=== PATIENT | female | born 1995 | race Caucasian/White ===

== ENCOUNTER 2021-10-21 18:55 | Emergency (ER) | payer OTHER, SELFPAY ==
[2021-10-21 19:09] VITALS: BP 135/74; PULSE 111; RESP 20; TEMP 36.5; O2SAT 99
[2021-10-21 19:31] LABS: COVID19 -Nasal RAPID POSITIVE (Negative)
--- NOTE | 2021-10-21 20:43 | PC.NURSE ---
Reports symptoms began 10/16 and that many family members where sick at [place]. Reports 5/10 pain in her neck and that I can't lift my neck up. Swollen lymph nodes noted upon palpation. Reports some dizziness when she gets up. Using a [place] every 4 hours for sinus pain with some relief. Water given. COVID vaccinated x 3.
--- NOTE | 2021-10-21 20:48 | ED_ITS ---
HPI - URI/Sore Throat General Chief Complaint: Upper Respiratory Symptoms Stated Complaint: possible sinus infection Time Seen by Provider: 10/21/21 20:40 Source: patient Mode of arrival: Ambulatory History of Present Illness HPI Narrative: Patient is a 25-year-old female vaccinated with COVID presents today with pressure in her sinuses sore throat general body aches and chills. Symptoms started 10/16/21, and have progressively gotten worse. Her COVID test is positive. Review of Systems Review of Systems Narrative: GENERAL: See HPI HEENT: See HPI + sinus pain, green nasal discharge RESPIRATORY: Denies dyspnea, cough, wheezing, hemoptysis, sputum. CARDIOVASCULAR: Denies chest pain, palpitations, orthopnea, edema GASTROINTESTINAL: Denies nausea, vomiting, abdominal pain, diarrhea, constipation, melena. : Denies dysuria, frequency, incontinence, hematuria, urinary retention, flank pain. MUSCULOSKELETAL: Denies weakness, joint pain, or bony pain SKIN: No rash, no erythema, no pruritus NEUROLOGIC: Denies weakness, dizziness, headache, numbness, change in speech, confusion PSYCHIATRIC: No concerning psychosocial issues. 12 point review of systems is negative except for those stated above and HPI Exam Initial Vital Signs Initial Vital Signs: Vital Signs Temperature 97.7 F 10/21/21 19:09 Pulse Rate 111 H 10/21/21 19:09 Respiratory Rate 20 10/21/21 19:09 Blood Pressure 135/74 10/21/21 19:09 Pulse Oximetry 99 10/21/21 19:09 GENERAL: Alert 25-year-old female appears to not fell well HEENT: Head atraumatic,EOMI, pupils reactive, face symmetric, moist mucous membr anes CARDIOVASCULAR: Regular rate and rhythm without murmurs, rubs or gallops. RESPIRATORY: Breath sounds equal bilaterally, no wheezes rales or rhonchi. EXTREMITIES: Normal range of motion, no clubbing or edema. Neurovascularly intact NEUROLOGICAL: Alert and oriented x4. SKIN: Warm, dry, no laceration, no petechiae, no rashes or lesions. Course Orders Ordered: ED Orders 10/21/21 19:15 COVID19 -Nasal swab/Pre-Proc Stat Vital Signs Vital signs: Vital Signs - 8 hr 10/21/21 19:09 10/21/21 21:11 Temperature 97.7 F Pulse Rate 111 H 101 H Respiratory Rate 20 Blood Pressure 135/74 137/87 Pulse Oximetry 99 98 MDM - URI/Sore Throat Lab Data Labs: Lab Results 10/21/21 Range/Units 19:15 SARS-CoV-2 (PCR) Positive H (Negative) Point of Care Testing Rapid Strep A Negative Discharge Plan Departure Patient Disposition: Home Clinical Impression: COVID-19 Instructions: DI for COVID-19 (Suspected or Confirmed ) Activity Restrictions/Additional Instructions: * if you have not yet been vaccinated is still recommended and encouraged that you do so once your infection has passed *Follow up with your primary provider in 2-3 days or call [phone] AT HOME: -Monitor oxygen with pulse oximeter. If less than 90% for more than 1 hour please return to emergency department -I recommend lying on stomach for side rather than back, it has been proven to increase oxygen levels -Wash hands frequently. -Stay isolated at home please follow the isolation instructions below. -Increase fluid intake. -you may take Tylenol as directed if needed for pain or fever EMERGENCY warning signs for COVID-19: - Difficulty breathing or shortness of breath, oxygen less than 90% - Persistent pain or pressure in the chest - New confusion or inability to arouse - Bluish lips or face CDC Guidelines for home isolation: - Stay away from others - Limit contact with pets and animals: If you must care for a pet, wash your hands before and after interacting with them - Wear a mask while in public all places - Cover your mouth and nose with a tissue when you cough or sneeze. Dispose of tissues in a lined trash can and wash your hands immediately with soap and water for at least 20 seconds. If soap and water are not available, clean hands with alcohol-based hand gang hemstitching machine operator that contains at least 60% alcohol. - Clean your hands often with soap and water for at least 20 seconds - Avoid touching your eyes, nose and mouth with unwashed hands - Do not share dishes, drinking glasses, cups, eating utensils, towels, or bedding with other people in your home. After using these items, wash them thoroughly with soap and water or put in the trust mail clerk. - Clean high-touch surfaces in your isolation area (?sick room? and bathroom) every day; let a caregiver clean and disinfect high-touch surfaces in other areas of the home. Clean the area or item with soap and water or another detergent if it is dirty. Then, use a household disinfectant.
[2021-10-21 21:11] VITALS: BP 137/87; PULSE 101; O2SAT 98
== END 2021-10-21 21:07 | disposition home or self-care (01) ==
PROVIDERS: Emergency Provider Emergency Medicine
DX: U07.1 COVID-19 (principal)
CPT/HCPCS: 87635; 87880; 99281; 99282; C9803